=== PATIENT | female | born 1995 | race Caucasian/White ===

== ENCOUNTER 2018-03-22 10:27 | Day surgery (SDC) | payer OTHER ==
[~2018-03-22 10:27] MED LIST: LIDOCAINE 1% MDV 20ML VIAL SQ
[2018-03-22 10:52] LABS: HEMATOCRIT 35.7 % (36.0-47.0); HEMOGLOBIN 12.2 g/dl (12.0-15.5); MEAN CORPUSCULAR HEMOGLOBIN 29.7 pg (27.0-33.0); MEAN CORPUSCULAR HGB CONC 34.2 g/dl (32.0-36.5); MEAN CORPUSCULAR VOLUME 86.9 fl (80.0-96.0); PLATELET COUNT, AUTOMATED 231 10^3/uL (150-450); RED BLOOD COUNT 4.11 10^6/uL (4.00-5.40); RED CELL DISTRIBUTION WIDTH 11.9 % (11.5-14.5); WHITE BLOOD COUNT 7.9 10^3/uL (4.0-10.0)
[2018-03-22] MEDS: LR 1,000 ML IV (10:52)
[2018-03-22 11:07] LABS: CONTROL LINE UCG INT CTR LINE PRESENT; URINE PREG TEST NEGATIVE (NEGATIVE)
[2018-03-22] MEDS: BUPIVACAINE/EPIN 0.25% 30 ML VIAL As Ordered (12:22)
[2018-03-22] MEDS ORDERED: LIDOCAINE 2% INJ 100 MG/5 ML SDV (FOR ANES.) As Ordered (12:47)
[2018-03-22] MEDS ORDERED: PROPOFOL 200 MG/20 ML VIAL As Ordered (12:47)
[2018-03-22] MEDS ORDERED: fentaNYL 100 MCG/2 ML INJECTION (J3010) As Ordered (12:47)
[2018-03-22] MEDS ORDERED: ONDANSETRON 4MG/2ML VIAL (J2405) As Ordered (12:47)
[2018-03-22] MEDS ORDERED: dexameTHASONE 4 MG/ML 1ML VIAL (J1100) As Ordered (12:47)
[2018-03-22] MEDS ORDERED: MIDAZOLAM INJ 2 MG/2 ML VIAL (J2250) As Ordered (12:47)
[2018-03-22] MEDS: ACETAMINOPHEN 650 MG SUPP As Ordered (13:00)
== END 2018-03-22 14:20 | disposition home or self-care (01) ==
LOC: M SDC 10:27
DX: Z30.432 Encounter for removal of intrauterine contraceptive device (principal); T83.39XA Other mechanical complication of intrauterine contraceptive device, initial encounter; X58.XXXA Exposure to other specified factors, initial encounter; Y93.89 Activity, other specified; Y92.89 Other specified places as the place of occurrence of the external cause; Y99.8 Other external cause status
CPT/HCPCS: 58301

== ENCOUNTER → 2019-05-12 | Outpatient (REF) | payer OTHER ==
[~2019-05-12] MED LIST changes: +FERR1TAB7 PO; +IBUP80TA PO; -LIDOCAINE 1% MDV 20ML VIAL SQ; +MACR100C3 PO; +MAPA500T17 PO; +PRENTAB74 PO
[2019-05-12 19:20] LABS: HEMATOCRIT 34.6 % (36.0-47.0); HEMOGLOBIN 11.6 g/dl (12.0-15.5); MEAN CORPUSCULAR HEMOGLOBIN 29.5 pg (27.0-33.0); MEAN CORPUSCULAR HGB CONC 33.5 g/dl (32.0-36.5); PLATELET COUNT, AUTOMATED 283 10^3/uL (150-450); RED BLOOD COUNT 3.93 10^6/uL (4.00-5.40)
[2019-05-12 20:01] LABS: HCG, SERUM QUANTITATIVE 4028 MIU/ML; RUBELLA IgG QUALITATIVE IMMUNE (IMMUNE)
[2019-05-12 20:30] LABS: HIV 1&2 SCREEN CENTAUR NEGATIVE (NEGATIVE)
== END ==
LOC: M LAB REF 18:06
PROVIDERS: ATTEND Nurse Practitioner Women's Health
DX: O36.80X0 Pregnancy with inconclusive fetal viability, not applicable or unspecified (principal)

== ENCOUNTER → 2019-05-12 | Outpatient (CLI) | payer OTHER ==
--- NOTE | 2019-05-12 17:53 | REP ---
Emergency first trimester obstetric sonography: History: Rule out ectopic . Right lower quadrant abdominal tenderness. Findings: Transabdominal and endovaginal scanning are performed. An intrauterine gestational sac is seen with mean sac size diameter of 6 mm. This corresponds with a gestational age estimate of 5 weeks to days. A yolk sac is seen within the gestational sac but no embryonic pole is observed. viability cannot be confirmed. No extrauterine abnormality is observed. There is a 2.1 cm hypoechoic area in the right ovary consistent with corpus luteum. Right ovarian dimensions are 2.9 x 3.1 x 2.0 cm. Left ovary measures 1.8 x 1.9 x 1.3 cm. Uterine dimensions are 9.0 x 4.4 x 5.1 cm. Ovarian Doppler flow is present bilaterally. Impression: There is an intrauterine gestational sac 5 weeks 2 days by mean sac size diameter. This contains a yolk sac but no identifiable embryonic pole. viability cannot be confirmed. No significant extrauterine abnormality. Electronically Signed by Tay Rodríguez MD 05/12/2019 06:02 P
== END ==
LOC: M RAD 15:48
PROVIDERS: ATTEND Nurse Practitioner Women's Health
DX: O36.80X0 Pregnancy with inconclusive fetal viability, not applicable or unspecified (principal); R10.9 Unspecified abdominal pain

== ENCOUNTER → 2019-05-19 | Outpatient (CLI) | payer OTHER ==
--- NOTE | 2019-05-20 07:24 | REP ---
REASON: Supervision of other normal . Within the uterus, there is an anechoic structure with increased echoes surrounding it consistent with a gestational sac within the endometrial cavity. Within the gestational sac, there is echogenic material with a mean crown-rump length measurement of which is consistent with a 1-vziw-9-day gestational age. Based on that the estimated date of delivery is 01/13/2020. Doppler interrogation of the heart shows a heart rate of 104 beats per minute. No chorionic or subchorionic abnormality was noted. Evaluation of the maternal adnexal showed no abnormalities. IMPRESSION: Early OB ultrasound as described above. Electronically Signed by Eugene Cook DO 05/20/2019 11:16 A
== END ==
LOC: M RAD 16:37
PROVIDERS: ATTEND Nurse Practitioner Women's Health
DX: O36.80X0 Pregnancy with inconclusive fetal viability, not applicable or unspecified (principal)

== ENCOUNTER → 2019-08-11 | Outpatient (REF) | payer OTHER | LOC: M LAB REF 15:50 | PROVIDERS: ATTEND Nurse Practitioner Family | DX: R30.0 Dysuria (principal) ==

== ENCOUNTER → 2021-08-30 | Outpatient (REF) | payer OTHER ==
[2021-08-30 13:07] LABS: HEMATOCRIT 35.8 % (36.0-47.0); MEAN CORPUSCULAR HEMOGLOBIN 29.3 pg (27.0-33.0); MEAN CORPUSCULAR HGB CONC 33.5 g/dl (32.0-36.5); MEAN CORPUSCULAR VOLUME 87.5 fl (80.0-96.0); PLATELET COUNT, AUTOMATED 262 10^3/uL (150-450); RED BLOOD COUNT 4.09 10^6/uL (4.00-5.40); WHITE BLOOD COUNT 7.3 10^3/uL (4.0-10.0)
[2021-08-30 13:53] LABS: HCG, SERUM QUANTITATIVE 46523 MIU/ML; HEPATITIS B SURFACE ANTIGEN NEGATIVE (NEGATIVE)
[2021-08-30 14:14] LABS: HEPATITIS C VIRUS ABY INDEX 0.2 INDEX (<0.8)
[2021-08-30 14:15] LABS: HIV 1&2 SCREEN CENTAUR NEGATIVE (NEGATIVE)
== END ==
LOC: M LAB REF 12:27
PROVIDERS: ATTEND Obstetrics & Gynecology
DX: Z32.01 Encounter for pregnancy test, result positive (principal)

== ENCOUNTER → 2022-01-25 | Outpatient (CLI) | payer OTHER ==
[2022-01-25 13:00] LABS: HEMATOCRIT 31.6 % (36.0-47.0); HEMOGLOBIN 10.6 g/dl (12.0-15.5); MEAN CORPUSCULAR HEMOGLOBIN 30.2 pg (27.0-33.0); MEAN CORPUSCULAR HGB CONC 33.5 g/dl (32.0-36.5); PLATELET COUNT, AUTOMATED 188 10^3/uL (150-450); RED BLOOD COUNT 3.51 10^6/uL (4.00-5.40); WHITE BLOOD COUNT 12.1 10^3/uL (4.0-10.0)
== END ==
LOC: M LAB 08:36
PROVIDERS: ATTEND Obstetrics & Gynecology
DX: Z34.82 Encounter for supervision of other normal pregnancy, second trimester (principal); Z3A.00 Weeks of gestation of pregnancy not specified

== ENCOUNTER → 2022-03-23 | Outpatient (REF) | payer OTHER | LOC: M LAB REF 12:25 | PROVIDERS: ATTEND Obstetrics & Gynecology | DX: Z34.83 Encounter for supervision of other normal pregnancy, third trimester (principal); Z36.85 Encounter for antenatal screening for Streptococcus B ==

== ENCOUNTER → 2022-03-24 | Outpatient (CLI) | payer OTHER ==
[2022-03-24 18:06] LABS: BASO # 0.1 10^3/uL (0.0-0.2); BASO % 0.5 % (0.0-1.0); EOS # 0.1 10^3/uL (0.0-0.5); EOS % 1.1 % (0.0-3.0); HEMATOCRIT 32.9 % (36.0-47.0); HEMOGLOBIN 10.4 g/dl (12.0-15.5); LYMPH # 2.1 10^3/uL (1.5-5.0); LYMPH % 19.6 % (24.0-44.0); MEAN CORPUSCULAR HEMOGLOBIN 27.2 pg (27.0-33.0); MEAN CORPUSCULAR HGB CONC 31.6 g/dl (32.0-36.5); MEAN CORPUSCULAR VOLUME 86.1 fl (80.0-96.0); MONO # 0.8 10^3/uL (0.0-0.8); MONO % 7.7 % (2.0-8.0); NEUTROPHILS # 7.5 10^3/uL (1.5-8.5); NEUTROPHILS % 70.3 % (36.0-66.0); PLATELET COUNT, AUTOMATED 218 10^3/uL (150-450); RED BLOOD COUNT 3.82 10^6/uL (4.00-5.40); WHITE BLOOD COUNT 10.6 10^3/uL (4.0-10.0)
[2022-03-24 18:59] LABS: CREATININE, URINE 69.7 MG/DL; URINE TOTAL PROTEIN 10.2 MG/DL (0-12)
[2022-03-24 19:02] LABS: ALT/SGPT 19 U/L (12-78); BILIRUBIN,TOTAL 0.4 MG/DL (0.2-1.0); CREATININE FOR GFR 0.52 MG/DL (0.55-1.30); GLOMERULAR FILTRATION RATE > 60.0 (>60); LDH LACTATE DEHYDROGENASE 191 U/L (84-246); URIC ACID 3.8 MG/DL (2.6-6.0)
[2022-03-24 19:42] LABS: CREATININE 24 HOUR, URINE 836.4 MG/24HR (600-1800); TOTAL PROTEIN 24 HOUR URINE 122.4 MG/24HR (50-150)
== END ==
LOC: M LAB 17:23
PROVIDERS: ATTEND Obstetrics & Gynecology
DX: O14.93 Unspecified pre-eclampsia, third trimester (principal); Z3A.00 Weeks of gestation of pregnancy not specified

== ENCOUNTER 2022-03-30 11:02 | Outpatient (CLI) | payer OTHER ==
[2022-03-30] VITALS (7 sets, daily range): BP systolic 135–161; BP diastolic 87–106
[~2022-03-30] VITALS: Ht 170.2 cm; Wt 75.6 kg
[2022-03-30] MEDS ORDERED: PRENTAB9 PO (11:21)
[2022-03-30] MEDS ORDERED: HOME MED LIST COMPLETE! XX SCH (11:25)
[2022-03-30 12:01] LABS: HEMATOCRIT 30.7 % (36.0-47.0); HEMOGLOBIN 10.1 g/dl (12.0-15.5); MEAN CORPUSCULAR HEMOGLOBIN 27.5 pg (27.0-33.0); MEAN CORPUSCULAR HGB CONC 32.9 g/dl (32.0-36.5); MEAN CORPUSCULAR VOLUME 83.7 fl (80.0-96.0); PLATELET COUNT, AUTOMATED 197 10^3/uL (150-450); RED BLOOD COUNT 3.67 10^6/uL (4.00-5.40); WHITE BLOOD COUNT 10.5 10^3/uL (4.0-10.0)
[2022-03-30 12:31] LABS: ALT/SGPT 18 U/L (12-78); BILIRUBIN,TOTAL 0.4 MG/DL (0.2-1.0); CREATININE FOR GFR 0.49 MG/DL (0.55-1.30); GLOMERULAR FILTRATION RATE > 60.0 (>60); LDH LACTATE DEHYDROGENASE 169 U/L (84-246); URIC ACID 3.8 MG/DL (2.6-6.0)
[2022-03-30 13:11] LABS: CREATININE,RANDOM URINE 42.3 MG/DL; TOTAL PROTEIN,RANDOM URINE 11.2 MG/DL (0.0-12.0)
== END 2022-03-30 13:48 | disposition home or self-care (01) ==
LOC: M LDO 11:02
PROVIDERS: ATTEND Specialist
DX: O13.3 Gestational [pregnancy-induced] hypertension without significant proteinuria, third trimester (principal); R51.0 Headache with orthostatic component, not elsewhere classified; Z87.59 Personal history of other complications of pregnancy, childbirth and the puerperium; Z3A.36 36 weeks gestation of pregnancy
CPT/HCPCS: 36415; 59025; 82247; 82565; 82570; 83615; 84156; 84450; 84460; 84550; 85027; G0378; G0463

== ENCOUNTER 2022-04-02 07:50 | Inpatient (IN) | payer OTHER ==
[~2022-04-02] VITALS: Ht 170.2 cm; Wt 75.7 kg
[2022-04-02] VITALS (13 sets, daily range): BP systolic 115–161; BP diastolic 77–97
[~2022-04-02 07:50] MED LIST changes: +PRENTAB9 PO
[2022-04-02] MEDS ORDERED: CARBOPROST TROMETHAMINE 250 MCG/ML AMP IM PRN (08:15)
[2022-04-02] MEDS ORDERED: LIDOCAINE 1% MDV 20ML VIAL INFIL PRN (08:15)
[2022-04-02] MEDS ORDERED: TRANEXAMIC ACID INJection 1,000 MG in NS 100 ML IV PRN (08:15)
[2022-04-02] MEDS ORDERED: OXYTOCIN DRIP 30 UNITS in IV 1 EA IV PRN (08:15)
[2022-04-02] MEDS: miSOPROStol 50MCG 1/2 TABLET PO SCH ×3 (09:11→17:22)
[2022-04-02 09:16] LABS: HEMATOCRIT 30.2 % (36.0-47.0); HEMOGLOBIN 9.7 g/dl (12.0-15.5); MEAN CORPUSCULAR HEMOGLOBIN 27.2 pg (27.0-33.0); MEAN CORPUSCULAR HGB CONC 32.1 g/dl (32.0-36.5); MEAN CORPUSCULAR VOLUME 84.6 fl (80.0-96.0); PLATELET COUNT, AUTOMATED 190 10^3/uL (150-450); RED BLOOD COUNT 3.57 10^6/uL (4.00-5.40); WHITE BLOOD COUNT 9.2 10^3/uL (4.0-10.0)
[2022-04-02] MEDS ORDERED: TUMS750C5 PO (09:19)
[2022-04-02] MEDS ORDERED: HOME MED LIST COMPLETE! XX SCH (09:20)
[2022-04-02 09:55] LABS: ALT/SGPT 21 U/L (12-78); BILIRUBIN,TOTAL 0.4 MG/DL (0.2-1.0); CREATININE FOR GFR 0.63 MG/DL (0.55-1.30); GLOMERULAR FILTRATION RATE > 60.0 (>60); LDH LACTATE DEHYDROGENASE 182 U/L (84-246); URIC ACID 4.4 MG/DL (2.6-6.0)
[2022-04-02] MEDS ORDERED: miSOPROStol 50MCG 1/2 TABLET PO ONE (19:40)
[2022-04-03] VITALS (36 sets, daily range): BP systolic 112–156; BP diastolic 70–106
[2022-04-03] MEDS ORDERED: NALOXONE INJ 0.4MG/1ML VIAL (J2310 PER 1MG) IV PRN (02:35)
[2022-04-03] MEDS ORDERED: diphenhydrAMINE 50MG/ML VIAL IV PRN (02:35)
[2022-04-03] MEDS ORDERED: LR 500 ML IV PRN (02:35)
[2022-04-03] MEDS ORDERED: ePHEDrine SULFATE 25 MG/5 ML(5MG/ML) SYRINGE IVP PRN (02:35)
[2022-04-03] MEDS ORDERED: EPIDURAL/PCA KEYS XX PRN (02:35)
[2022-04-03] MEDS ORDERED: FENTANYL/ROPIVACAINE/NACL BAG 100 ML EPIDURAL SCH (02:35)
[2022-04-03] MEDS ORDERED: ONDANSETRON 4MG 2ML VIAL IV PRN (02:35)
[2022-04-03] MEDS: OXYTOCIN DRIP 30 UNITS in IV 1 EA IV SCH ×2 (03:46→09:56)
[2022-04-03] MEDS ORDERED: ACETAMINOPHEN TAB 650MG DOSE (2X325MG) PO PRN (06:50)
[2022-04-03] MEDS ORDERED: METHYLERGONOVINE MALEATE 0.2 MG TAB PO PRN (06:50)
[2022-04-03] MEDS ORDERED: OXYTOCIN DRIP 30 UNITS in IV 1 EA IV SCH (06:50)
[2022-04-03] MEDS ORDERED: RHOGAM 300 MCG (1500 IU) INJ (J2790) IM SCH (06:50)
[2022-04-03] MEDS ORDERED: IBUPROFEN 600MG TAB PO PRN (06:50)
[2022-04-03] MEDS ORDERED: ANUSOL HC CREAM 30GM TOP PRN (06:50)
[2022-04-03] MEDS ORDERED: DOCUSATE SODIUM 100MG CAPSULE PO PRN (06:50)
[2022-04-03] MEDS ORDERED: DIBUCAINE 1% OINTMENT 30GM TOP PRN (06:50)
[2022-04-03] MEDS ORDERED: MOM 30ML SUSPENSION UDC PO PRN (06:50)
[2022-04-03] MEDS: IBUPROFEN 800 MG TAB PO PRN ×2 (07:53→16:38)
[2022-04-03] MEDS: PRENATAL VITAMINS CHEWABLE TABLET PO SCH (09:17)
[2022-04-03] MEDS ORDERED: MORPHINE 4 MG/ML 1ML VIAL/SYRINGE As Ordered ONE (10:02)
[2022-04-03] MEDS ORDERED: MORPHINE 4 MG/ML 1ML VIAL/SYRINGE IV ONE (10:30)
[2022-04-03] MEDS ORDERED: AMPICILLIN SOD/SULBACTAM SOD 3 GM in D5W MINI-BAG PLUS 100 ML IV ONE (11:00)
[2022-04-03 11:41] LABS: HEMATOCRIT 26.9 % (36.0-47.0); HEMOGLOBIN 8.3 g/dl (12.0-15.5); MEAN CORPUSCULAR HEMOGLOBIN 27.2 pg (27.0-33.0); MEAN CORPUSCULAR HGB CONC 30.9 g/dl (32.0-36.5); MEAN CORPUSCULAR VOLUME 88.2 fl (80.0-96.0); PLATELET COUNT, AUTOMATED 178 10^3/uL (150-450); RED BLOOD COUNT 3.05 10^6/uL (4.00-5.40); WHITE BLOOD COUNT 20.3 10^3/uL (4.0-10.0)
[2022-04-03] MEDS: ACETAMINOPHEN 500 MG TAB PO PRN (14:33)
[2022-04-04 02:00] VITALS: BP 120/72
[2022-04-04 06:00] VITALS: BP 117/67
[2022-04-04 07:59] LABS: HEMATOCRIT 26.7 % (36.0-47.0); HEMOGLOBIN 8.6 g/dl (12.0-15.5); MEAN CORPUSCULAR HEMOGLOBIN 27.9 pg (27.0-33.0); MEAN CORPUSCULAR HGB CONC 32.2 g/dl (32.0-36.5); MEAN CORPUSCULAR VOLUME 86.7 fl (80.0-96.0); PLATELET COUNT, AUTOMATED 137 10^3/uL (150-450); RED BLOOD COUNT 3.08 10^6/uL (4.00-5.40); WHITE BLOOD COUNT 11.6 10^3/uL (4.0-10.0)
[2022-04-04] MEDS: PRENATAL VITAMINS CHEWABLE TABLET PO SCH (09:06)
[2022-04-04] MEDS: ACETAMINOPHEN 500 MG TAB PO PRN ×2 (09:06→20:55)
[2022-04-04 10:00] VITALS: BP 126/84
[2022-04-04 14:00] VITALS: BP 128/84
[2022-04-04] MEDS: IBUPROFEN 800 MG TAB PO PRN (15:07)
[2022-04-04 18:00] VITALS: BP 114/65
[2022-04-04 22:00] VITALS: BP 126/79
[2022-04-05 02:00] VITALS: BP 123/74
[2022-04-05] MEDS: IBUPROFEN 800 MG TAB PO PRN (05:39)
[2022-04-05 06:00] VITALS: BP 131/85
[2022-04-05] MEDS ORDERED: MEASLES,MUMPS,RUBELLA VACCINE INJ (MMR-II) (90707) SC.IMMUN ONE (09:00)
[2022-04-05] MEDS: PRENATAL VITAMINS CHEWABLE TABLET PO SCH (09:04)
[2022-04-05 10:00] VITALS: BP 136/83
== END 2022-04-05 14:45 | disposition home or self-care (01) | DRG 807 ==
LOC: M LDI 07:50 → M OBS 04-03 08:49
PROVIDERS: ADMIT Obstetrics & Gynecology; ATTEND Obstetrics & Gynecology
PROC: 3E0P7GC Introduction of Other Therapeutic Substance into Female Reproductive, Via Natural or Artificial Opening (ICD-10-PCS; 2022-04-02)
PROC: 10E0XZZ Delivery of Products of Conception, External Approach (ICD-10-PCS; principal; 2022-04-03)
PROC: 30233N1 Transfusion of Nonautologous Red Blood Cells into Peripheral Vein, Percutaneous Approach (ICD-10-PCS; 2022-04-03)
DX: O13.4 Gestational [pregnancy-induced] hypertension without significant proteinuria, complicating childbirth (principal); Z37.0 Single live birth; Z3A.37 37 weeks gestation of pregnancy; O72.1 Other immediate postpartum hemorrhage

== ENCOUNTER → 2022-07-16 | Outpatient (CLI) | payer OTHER ==
[~2022-07-16] MED LIST changes: +TUMS750C5 PO
== END ==
LOC: M LABSMTC 11:14
PROVIDERS: ATTEND Anesthesiology
DX: Z01.818 Encounter for other preprocedural examination (principal); Z11.52 Encounter for screening for COVID-19

== ENCOUNTER → 2023-04-05 | Outpatient (CLI) | payer OTHER | LOC: M WUC 10:44 | PROVIDERS: ATTEND Registered Nurse | DX: M25.511 Pain in right shoulder (principal) ==

== ENCOUNTER → 2024-04-25 | Outpatient (REF) | payer OTHER ==
[2024-04-25 19:47] LABS: APPEARANCE, URINE CLOUDY (CLEAR); BACTERIA, URINE AUTO NEGATIVE (NEGATIVE); BILIRUBIN, URINE AUTO NEGATIVE (NEGATIVE); BLOOD, URINE BLOOD 3+ (NEGATIVE); COLOR, URINE AMBER (YELLOW); GLUCOSE, URINE (UA) AUTO NEGATIVE (NEGATIVE); KETONE, URINE AUTO NEGATIVE (NEGATIVE); LEUKOCYTE ESTERASE, URINE AUTO 2+ (NEGATIVE); MUCUS, URINE SMALL (NEGATIVE); NITRITE, URINE AUTO POSITIVE (NEGATIVE); PROTEIN, URINE AUTO 2+ mg/dL (NEGATIVE); RBC, URINE AUTO TNTC /HPF (0-3); SPECIFIC GRAVITY URINE AUTO 1.023 (1.002-1.035); SQUAMOUS EPITHELIAL CELL UR AU 8 /HPF (0-6); TRANSITIONAL EPITHELIAL AUTO 3 /HPF; WBC, URINE AUTO 130 /HPF (0-3)
== END ==
LOC: M LAB REF 18:50
PROVIDERS: ATTEND Physician Assistant
DX: N39.0 Urinary tract infection, site not specified (principal)